=== PATIENT | female | born 1935 | race Caucasian/White ===

== ENCOUNTER 2019-02-27 17:45 | Inpatient (IN) ==
[2019-02-27 19:44] LABS: BASO# 0.01 X1000 (0.0-0.2); BASO% 0.1 % (0.0-0.8); EOS# 0.08 X1000 (0.0-0.7); EOS% 0.9 % (0.0-10.0); HEMATOCRIT 32.9 % (37.0-47.0); HEMOGLOBIN 12.1 g/dL (12.0-16.0); IMM GRAN# 0.08 X1000 (0.0-0.04); IMM GRAN% 0.9 % (0.0-0.5); LYMPH# 2.15 X1000 (1.2-3.4); LYMPH% 23.5 % (20.5-51.1); MCHC 36.8 g/dL (33-37); MCV 81.6 FL (81-99); MONO# 1.23 X1000 (0.11-0.59); MONO% 13.5 % (1.7-9.3); MPV 9.2 FL (7.4-10.4); NEUT# 5.59 X1000 (1.4-6.5); NEUT% 61.1 % (42.2-75.2); PLT 304 X1000 (130-400); RBC 4.03 XMIL (4.2-5.4); RDW 10.7 % (11.5-14.5); WBC 9.14 X1000 (4.8-10.8)
[2019-02-27 19:54] LABS: BILIRUBIN URINE NEGATIVE (NEGATIVE); BLOOD URINE NEGATIVE (NEGATIVE); CLARITY CLEAR (CLEAR); COLOR YELLOW; KETONE URINE NEGATIVE (NEGATIVE); LEUKOCYTES URINE NEGATIVE (NEGATIVE); NITRITE URINE NEGATIVE (NEGATIVE); PROTEIN URINE NEGATIVE (NEGATIVE); URINE SOURCE CATH; UROBILINOGEN URINE NORMAL
[2019-02-27 19:55] LABS: URINE BACTERIA NEGATIVE /HFP; URINE CAST NONE SEEN /LPF; URINE CRYSTAL NONE SEEN /HPF; URINE EPITHELIAL CELLS <10 /HPF (<10); URINE RBC <10 /HPF (<10); URINE WBC <10 /HPF (<10); URINE YEAST NONE SEEN /HPF
[2019-02-27 20:05] LABS: ESTIMATED GFR > 60
[2019-02-27 20:17] LABS: AGAP 11; ALBUMIN 4.3 g/dL (3.5-5.0); ALKALINE PHOSPHATASE 70 U/L (32-104); BUN 8 mg/dL (8-22); CALCIUM 9.2 mg/dL (8.8-10.2); CHLORIDE 71 mmol/L (98-107); COSMO 213; CREATININE 0.4 mg/dL (0.5-0.9); GLUCOSE 109 mg/dL (70-104); GOT 18 U/L (10-30); GPT 7 U/L (10-36); POTASSIUM 4.2 mmol/L (3.5-5.1); TCO2 23 mmol/L (25-35); TOTAL PROTEIN 6.5 g/dL (6.3-8.3)
[2019-02-27 20:18] LABS: SODIUM 105 mmol/L (136-145)
--- NOTE | 2019-02-27 20:26 | Diag Imaging Result Doc PS360 ---
CHEST-1 VIEW - 02/27/2019 INDICATION: weakness, increased confusion. COMPARISON: 03/25/2015 FINDINGS: The lungs are normally expanded and clear. Heart size and mediastinal contours are normal. No pneumothorax or pleural effusion. IMPRESSION: Negative exam. Electronically signed by Celso Chaney 02/27/2019 8:25 PM
--- NOTE | 2019-02-27 20:31 | Diag Imaging Result Doc PS360 ---
CT HEAD W/O CONTRAST - 02/27/2019 INDICATION: increasing confusion. COMPARISON: None FINDINGS: There is diffuse advanced cerebral white matter hypodensity compatible with chronic microvascular ischemia. No intracranial mass or hemorrhage. The skull is intact. The sinuses, mastoids, and middle ears are clear. IMPRESSION: Advanced chronic microvascular ischemia. No acute process. This exam was performed using automated exposure control, adjustment of mA or kV according to patient size, and/or use of iterative reconstruction technique Electronically signed by Celso Chaney 02/27/2019 8:29 PM
[2019-02-27] MEDS ORDERED: NACL 3% 500 ML IV SCH ×3 (21:00→21:53)
--- NOTE | 2019-02-27 21:36 | PROVIDER DOCUMENTATION ---
This chart was entered by Domi Ventura Scribe, acting as scribe for Tianna Huerta DO. HPI-General Adult - General Chief Complaint: Edema Stated Complaint: FEET SWELLING / HEADACHE Time Seen by Provider: 02/27/19 19:03 Source: patient Allergies/Adverse Reactions: Patient Allergies Allergy/AdvReac Type Severity Reaction Status Date / Time ibuprofen [From Motrin] Allergy RASH Verified 03/23/15 17:26 morphine Allergy ANAPHYLAXIS Verified 03/23/15 17:26 Home Medications: Home Medication List Medication Instructions Recorded Confirmed Last Taken Type Digoxin [Lanoxin] 125 mcg PO DAILY 03/23/15 03/23/15 03/23/15 History Flecainide Acetate 50 mg PO BID 03/23/15 03/23/15 03/23/15 18:00 History Lisinopril 10 mg PO DAILY 03/23/15 03/23/15 03/23/15 History Multivitamin [Daily Multiple 1 each PO DAILY 03/23/15 03/23/15 03/23/15 09:00 Hi story Vitamin] PRAVAstatin [Pravachol] 40 mg PO DAILY 03/23/15 03/23/15 03/23/15 History Acetaminophen [Tylenol] 650 mg PO PRN PRN #0 tablet 03/28/15 Unknown Rx Digoxin [Lanoxin] 125 microgm PO DAILY #0 tablet 03/28/15 Unknown Rx Flecainide [Tambocor] 50 mg PO BID #0 tablet 03/28/15 Unknown Rx Lorazepam 1 mg PO TID PRN #90 tablet 03/28/15 Unknown Rx - History of Present Illness -Gen Adult Nature of Presenting Problems: pt is a 83 yr old female presenting with complaint of increased LE edema, chest pain, fatigue, urinary frequency, headache and dizziness. pt reports chest pain tonight. Her son states that she complained of that after sweeping and has done so previously. She has a headache that has been present x 2 yrs and the etiology is unclear. Location of Pain/Injury: reports: head, chest Pain Radiation: reports: no radiation Quality of Pain: reports: aching Severity: reports: mild Onset/Duration: reports: gradual Timing: reports: changing over time, getting worse Context/Activities at Onset: reports: light activity Modifying Factors: improves with: analgesics (no relief) Associated Symptoms: reports: chest pain, fatigue, genitourinary problems, headaches, loss of appetite, weakness. denies: back/neck pain, fever/chills, sinus congestion/drainage, shortness of breath Similar Symptoms Previously?: Yes Recently seen or treated by another doctor?: No Review of Systems - Adult - REVIEW OF SYSTEMS - ADULT Constitutional: reports: merry. denies: chills, fever Eyes: reports: no symptoms reported Ears, Nose, Mouth & Throat: denies: ear pain, sinus problem, throat pain Cardiovascular: reports: chest pain, edema. denies: palpitations, syncope Respiratory: denies: cough, shortness of breath, wheezing Gastrointestinal: denies: abdominal pain, nausea, vomiting Genitourinary: reports: frequency. denies: dysuria, flank pain Musculoskeletal: denies: back pain, neck pain Integumentary: reports: no symptoms reported Neurological: reports: dizziness/vertigo, headache/migraines. denies: syncope Psychiatric: reports: no symptoms reported Endocrine: reports: no symptoms reported Hematologic/Lymphatic: reports: no symptoms reported Allergic/Immunologic: reports: no symptoms reported All Other Systems: Reviewed and Negative Past History - Adult - PAST MEDICAL HISTORY-ADULT Review of Records: reports: Old Records Reviewed, Nursing Assessment Review, Medications Reviewed, Social history reviewed & non-contributory. Major Childhood Illnesses: reports: denies history Cardiovascular: reports: A-Fib, HTN, hyperlipidemia Respiratory: reports: denies history Gastrointestinal: reports: GERD Obstetrical/Gynecological: reports: denies history Genitourinary: reports: denies history Musculoskeletal: reports: denies history Neurological: reports: denies history Endocrine/Immune: reports: denies history Other Conditions: reports: denies history - PRIOR SURGERIES/PROCEDURES Surgical/Procedure History: reports: hysterectomy, orthopedic (extremity) (x3), back/neck - IMMUNIZATION STATUS Childhood Immunizations: See Nurse Assessment Flu Vaccine: See Nurse Assessment - FAMILY HISTORY Family History: reviewed, not pertinent - SOCIAL HISTORY Smoking: denies Substance Use: denies Living Situation: family Physical Exam-General - PHYSICAL EXAM-ADULT Initial Vital Signs Reviewed: Yes - CONSTITUTIONAL General Appearance: appears well, alert, no apparent distress - EYES Eyes: PERRL/EOMI, pink conjunctivae - HEAD, EARS, NOSE, MOUTH & THROAT HENMT: normocephalic/atraumatic, moist mucous membranes, normal ENT inspection - NECK Neck: non-tender, full range of motion, supple, normal inspection - RESPIRATORY Respiratory: chest non-tender, lungs clear, normal breath sounds, no pleuratic chest pain, no respiratory distress, no accessory muscle use - CARDIOVASCULAR Cardiovascular: normal peripheral pulses, regular rate, rhythm, no JVD, other (2+ pitting edema LLE, trace edema RLE) - GASTROINTESTINAL (ABDOMEN) Abdominal Exam: normal bowel sounds, non tender, soft - LYMPHATIC Lymphatic: no adenopathy - MUSCULOSKELETAL Back Exam: normal inspection Extremity: normal range of motion, non-tender, pedal edema - SKIN Integumentary: normal color, normal turgor, warm/dry - NEUROLOGIC Neurologic: other (speech clear, fur blender equal and strong. oriented to person and place.). negative: facial droop, focal weakness, motor weakness, sensory deficit - PSYCHIATRIC Psych/Mental Status: normal mood/affect Progress - PLAN OF CARE/RESULTS Progress/Plan/Lab Results: Vital Signs - 8 hr 02/27/19 18:06 02/27/19 19:07 Temperature 97.9 F Pulse Rate 67 67 Respiratory Rate 18 23 Blood Pressure 145/76 144/74 O2 Sat by Pulse Oximetry 99 98 Clinically stable under my care. Considerations include but not limited to: CVA, TIA, UTI, dehydration, hypokalemia, sepsis. Her head CT is WNL. Her sodium returned at 105. I discussed her care with Dr Peters who recommended admission at [facility]. I spoke with Dr Tadeo there who accepted her. He recommended initiating 3% saline. This was initiated prior to xfer. She remained free of seizure activity here. Result Diagrams: 02/27/19 19:23 02/27/19 19:23 - XRAY 1 XRAY Study: Chest Impression: Normal ( Signed CHEST-1 VIEW - 02/27/2019 INDICATION: weakness, increased confusion. COMPARISON: 03/25/2015 FINDINGS: The lungs are normally expanded and clear. Heart size and mediastinal contours are normal. No pneumothorax or pleural effusion. IMPRESSION: Negative exam. Electronically signed by Celso Chaney 02/27/2019 8:25 PM 02/27/192024 Interpreting Physician: Celso Chaney MD Dictated Date/Time: 02/27/192024) - CT/MRI 1 CT Study: Head Impression: Abnormal (Signed CT HEAD W/O CONTRAST - 02/27/2019 INDICATION: increasing confusion. COMPARISON: None FINDINGS: There is diffuse advanced cerebral white matter hypodensity compatible with chronic mi crovascular ischemia. No intracranial mass or hemorrhage. The skull is intact. The sinuses, mastoids, and middle ears are clear. IMPRESSION: Advanced chronic microvascular ischemia. No acute process. This exam was performed using automated exposure control, adjustment of mA or kV according to patient size, and/or use of iterative reconstruction technique Electronically signed by Celso Chaney 02/27/2019 8:29 PM 02/27/192028 Interpreting Physician: Celso Chaney MD Dictated Date/Time: 02/27/192024 cc: Tianna Huerta DO; Aldair Gonsalez), See EMR Report Departure - Departure Date of Disposition Decision: 02/27/19 Time of Disposition Decision: 21:00 DIAGNOSIS: Hyponatremia Disposition: ADMITTED INPATIENT 09 Certified Medical Emergency: Emergent Condition: Serious Referrals and Follow-Ups: Aldair Gonsalez [Primary Care Provider] - - Critical Care Note This patient required my direct & personal management of CC.: Yes Total Time (mins): 33 Critical Care Statement: This patient required my direct personal management to treat or rule out processes, the absence of which, could potentiallly result in sudden, clinically significant life or limb threatening deterioration. Attestation - Physician/ ELI Attestation The physician spent face to face time with patient:: Yes Advanced Practice Provider documentation review:: Supervising physician onsite and consulted in the evaluation and care of this patient. The physician did have a face to face encounter with the patient. This chart was documented by the indicated scribe, (Domi Ventura, Kaleigh) and accurately reflects the services I performed and decisions made by me, Tianna Huerta DO, as attested by the provider's signature.
[2019-02-27 22:26] LABS: MAGNESIUM 1.5 mg/dL (1.5-2.7)
[2019-02-27] MEDS ORDERED: TYLENOL PO PRN (22:31)
[2019-02-27] MEDS ORDERED: ZOFRAN IV PRN (22:31)
--- NOTE | 2019-02-27 23:30 | EKG Report ---
Test Performed on : 02/27/2019 10:30:02 PM Test Reason : Hyponatremia Blood Pressure : / mmHG Vent. Rate : 068 BPM Atrial Rate : 068 BPM P-R Int : 174 ms QRS Dur : 158 ms QT Int : 476 ms P-R-T Axes : 036 -41 095 degrees QTc Int : 506 ms Sinus rhythm. with occasional premature ventricular complexes. Left axis deviation Left bundle branch block Abnormal ECG When compared with ECG of 02-JUL-2007 07:14, premature ventricular complexes. are now present Left bundle branch block is now present Confirmed by Dejan Johnson MD ([id number]) on 03/01/2019 9:00:56 AM
--- NOTE | 2019-02-27 23:35 | EKG Report ---
Test Performed on : 02/27/2019 11:32:37 PM Test Reason : EVAL Blood Pressure : / mmHG Vent. Rate : 067 BPM Atrial Rate : 067 BPM P-R Int : 208 ms QRS Dur : 166 ms QT Int : 478 ms P-R-T Axes : 058 -39 091 degrees QTc Int : 505 ms Normal sinus rhythm. Left axis deviation Left bundle branch block Abnormal ECG When compared with ECG of 27-FEB-2019 23:31, (Unconfirmed) No significant change was found Confirmed by Alex SANTIZO, Dejan Issa ([id number]) on 03/01/2019 9:00:58 AM
[2019-02-28] MEDS ORDERED: LASIX IV ONE (02:25)
[2019-02-28] MEDS ORDERED: NACL 3% 500 ML IV SCH ×6 (02:30→13:30)
[2019-02-28 05:08] LABS: BASO# 0.01 X1000 (0.0-0.2); BASO% 0.1 % (0.0-0.8); EOS# 0.07 X1000 (0.0-0.7); EOS% 0.7 % (0.0-10.0); HEMATOCRIT 36.1 % (37.0-47.0); HEMOGLOBIN 13.3 g/dL (12.0-16.0); IMM GRAN# 0.07 X1000 (0.0-0.04); IMM GRAN% 0.7 % (0.0-0.5); LYMPH# 1.86 X1000 (1.2-3.4); LYMPH% 18.4 % (20.5-51.1); MCH 29.9 PG (27-31); MCHC 36.8 g/dL (33-37); MCV 81.1 FL (81-99); MONO# 1.25 X1000 (0.11-0.59); MONO% 12.4 % (1.7-9.3); MPV 9.8 FL (7.4-10.4); NEUT# 6.86 X1000 (1.4-6.5); NEUT% 67.7 % (42.2-75.2); PLT 288 X1000 (130-400); RBC 4.45 XMIL (4.2-5.4); RDW 10.7 % (11.5-14.5); WBC 10.12 X1000 (4.8-10.8)
--- NOTE | 2019-02-28 05:19 | HISTORY AND PHYSICAL ---
ADDENDUM This is an addendum to the history and physical dictated by nurse practitioner. I agree with most components of history, physical, assessment and plan. In brief, Mrs. Powell is an 83-year-old lady with past medical history of atrial fibrillation, chronic GERD, coronary artery disease, essential hypertension, hyperlipidemia, who went to the [place] [facility] with chief complaints of increasing lower extremity edema, headache, dizziness, and increased urinary frequency. In the [place] [facility] room, she was found to have significant hyponatremia with sodium of 105, so she was transferred to [facility] ICU for further management as well as Nephrology evaluation. At the time of my evaluation, patient is alert, but she appears confused. She follows simple commands, but often times mumbles that she is on high blood pressure medication. VITAL SIGNS: Suggest temperature of 97.9 degrees, pulse 72, respiratory 23, blood pressure 162/85. She is saturating 99% on room air. PHYSICAL EXAMINATION: GENERAL: Not in acute distress. HEENT: Oral cavity is moist with good pool of saliva. LUNGS: Air entry bilaterally equal. No wheeze, rhonchi, crackles. CARDIOVASCULAR: S1, S2 normal. Regular. No murmur, gallop, rub. ABDOMEN: Soft, nontender. EXTREMITIES: She has bilateral lower extremity edema extending up to knee levels. NEUROLOGIC: She is alert, oriented to herself. She answers intermittent questions appropriately. She is moving all extremities spontaneously LABS: Suggestive of sodium of 105, which improved to 106 after 100 mL of hypertonic saline. Microbiology: No data. IMAGIN. Head CT on admission did not have any acute pathology. There was no mention of brain herniation. 2. Chest x-ray had negative exam. 3. EKG had left bundle branch block. ASSESSMENT AND PLAN: 1. Hyponatremia. It could be hypervolemic hyponatremia, considering bilateral lower extremity edema and mild volume overload. However, there was no documentation of congestive heart failure or echocardiogram in the system. I will get the echocardiogram. I will treat this as chronic hyponatremia with goal of increasing serum sodium of about 6 mEq in 24 hours. Her sodium increased to about 1 mEq after 100 mL of hypertonic saline. I will start her on hypertonic saline infusion as well as give her intravenous Lasix and follow up with echocardiogram. We will also consult Nephrology in the morning time. She does not have any seizures or she is not obtunded, though she appears mildly confused. 2. Atrial fibrillation. We will resume her home medications once reconciled. 3. Disposition: I will continue to monitor patient inside ICU. TIME SPENT: More than 30 minutes of critical care time was spent taking care of this patient. Plan of care will be discussed with nursing team. cc: Lexx Tadeo MD MTDPhillip
[2019-02-28 05:25] LABS: AGAP 14; ALB/GLOB RATIO 1.4; ALBUMIN 4.1 g/dL (3.5-5.0); ALKALINE PHOSPHATASE 69 U/L (32-104); BUN 6 mg/dL (8-22); CALCIUM 8.8 mg/dL (8.8-10.2); CHLORIDE 69 mmol/L (98-107); COSMO 215; CREATININE 0.4 mg/dL (0.5-0.9); ESTIMATED GFR > 60; GLUCOSE 112 mg/dL (70-104); GOT 21 U/L (10-30); GPT 8 U/L (10-36); POTASSIUM 3.3 mmol/L (3.5-5.1); TCO2 23 mmol/L (25-35); TOTAL BILIRUBIN 0.85 mg/dL (0.20-1.00)
[2019-02-28 05:27] LABS: SODIUM 106 mmol/L (136-145)
[2019-02-28] MEDS: ULTRAM PO PRN (06:07)
[2019-02-28] MEDS: PRILOSEC PO SCH (06:08)
[2019-02-28] MEDS ORDERED: KLOR-CON PO ONE (06:51)
[2019-02-28] MEDS: THERA M PLUS PO SCH (07:59)
[2019-02-28] MEDS: TOPROL XL PO SCH (07:59)
[2019-02-28] MEDS: BETAPACE PO SCH ×2 (07:59→20:49)
[2019-02-28 09:36] LABS: AGAP 14; BUN 6 mg/dL (8-22); CALCIUM 8.8 mg/dL (8.8-10.2); CHLORIDE 67 mmol/L (98-107); COSMO 213; CREATININE 0.4 mg/dL (0.5-0.9); ESTIMATED GFR > 60; GLUCOSE 112 mg/dL (70-104); POTASSIUM 3.1 mmol/L (3.5-5.1); TCO2 24 mmol/L (25-35)
[2019-02-28 09:39] LABS: SODIUM 107 mmol/L (136-145)
--- NOTE | 2019-02-28 10:31 | PROGRESS NOTE ---
DATE: 02/28/2019 SUBJECTIVE: This morning, I saw Ms. Powell go in the ICU. She was no family member at the bedside. She could not really tell me why she came to the hospital, and with whom she came to the hospital with. She is still fairly confused. She is oriented to person and to place, but disoriented to time. She will, however, follow some basic commands. OBJECTIVE: Vital signs: Blood pressure is 143/75, pulse of 69, respiration is 22, temperature 98.4 degrees. General exam: Ms. Powell is an 83-year-old female; she is in bed. She did not seem to be in any distress. HEENT: Mucosa is pink and moist. Anicteric. Acyanotic. Neck: Supple. I did not see any JVD. Chest: Good air entry bilateral. There were no crepitations, no rhonchi. Cardiovascular: Regular rate and rhythm. Occasional extrasystolic beats, but no murmurs, no rubs, no gallops. GI/Abdomen: Soft, nontender. Bowel sounds present. Extremities: There may be a trace of edema at the ankle, but I did not see any remarkable lower extremity edema. DIRECTOR OF GIFT PLANNING: Patient was awake, alert, oriented to person and to place, but disoriented to time. The patient was also unaware what brought her to the hospital, but she will follow basic commands. She is very, very easily forgetful. LABORATORY DATA: WBC is 10.12, hemoglobin is. 13.2, platelet count of 288. Sodium is 106, potassium is 3.2, chloride is 63, bicarbonate is 23. Renal function is fine. The patient's random urine sodium was 411. Osmolarity was 315. Serum osmolarity was 205. TSH is 1.43. ASSESSMENT: 1. Altered mental status on presentation with some confusion, which we think is associated with hyponatremia. We will continue to address the underlying problem. 2. Chronic hyponatremia. Ms. Powell seems to run low sodium since 2014. It has however been remarkably worse. This is chronic. She does not seems overly volume overloaded this morning, so she might have had some improvement overnight. She is getting 3% at this time. We will follow up the sodium determination as ordered. 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 I have not seen any medication on her list that will cause this. Her thyroid stimulating hormone is normal. We will get a cortisol level. If the cortisol level is normal, we will have to scan her chest to rule out any lung pathology that could potentially cause her the syndrome of inappropriate antidiuretic hormone. Nephrology has also been consulted to help with the management. 3. History of atrial fibrillation, currently rate controlled. Patient is on Sotalol and metoprolol. 4. Dyslipidemia. 5. Gastroesophageal reflux disease. 6. History of coronary artery disease currently asymptomatic. PLAN: So, in general, Ms. oPwell has chronic hyponatremia, which has obviously gotten worse. 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 Her medication list does not suggest anything that has potential to cause this. We are going to check serum cortisol. I think she would eventually need fluid restriction and may be Samsca after the 3%. We will however wait for Nephrology to see her and then give her some more recommendations. cc: Francis Tilley MD
--- NOTE | 2019-02-28 11:59 | HISTORY AND PHYSICAL ---
PRIMARY CARE PROVIDER: Dr. Aldair Gonsalez. DATE AND TIME: 02/28/2019 at 0025. CHIEF COMPLAINT: Edema. HISTORY OF PRESENT ILLNESS: Ms. Powell is an 83-year-old female, who presented to the ER at [facility] this evening secondary to some increased lower extremity swelling. The patient did have reported multiple symptoms which included headache, which she noted was a frontal headache. The patient has been having sinus congestion as well. She also reported dizziness, increased fatigue. She has been reporting chest pain as well. When the patient was asked to point to her chest pain, she did point to her epigastric area. She reports the pain was nonradiating, though really could not describe how the pain felt. She did tell me that she had a history of hiatal hernia as well, though she is reporting increased indigestion/heartburn and states she does take a lot of [id number] Rolaids. She denies any nausea, vomiting, or diarrhea. She denies any hematemesis, hematochezia or melena. She denies any fever, body aches, or chills. She reports some possible increase though she denies any dysuria. She also has been reporting increased bilateral lower extremity edema as well. The patient denies any new or recent changes to any of her medications. Upon evaluation in the ER at [facility], lab results did reveal that the patient did have severe hyponatremia with an initial sodium of 105. ProBNP was elevated at 1596. The patient's EKG did show normal sinus rhythm with a left bundle-branch block at a rate of 67 with a QTc of 505. The patient's left bundle-branch block is not of new onset, it was present on previous EKG. CK and troponin were negative. Chest x-ray as well as a CT head without contrast showed no acute intracranial abnormalities. Given the patient's low sodium, we will have her placed inpatient for admission. She will be transferred to [facility] for inpatient ICU admission. Though I am not certain what the patient's baseline mentation is, her son was not present at bedside, he did mention to the nurse that he does believe the patient has dementia and her memory has been slipping more than normal recently, though the patient, at this time, could tell me her name, her date of , and that she was in [facility] that was located in [place]. REVIEW OF SYSTEMS: A 14 point review of systems was conducted with the patient and all were negative except for pertinent positives mentioned above in the HPI. PAST MEDICAL HISTORY: 1. Atrial fibrillation. 2. History of coronary artery disease. 3. Anxiety disorder. 4. Dyslipidemia. 5. Hypertension. PAST SURGICAL HISTORY: 1. Bilateral hip replacements. 2. Back surgery x2. 3. Hysterectomy. 4. Carpal tunnel release bilaterally. FAMILY HISTORY: Hypertension. SOCIAL HISTORY: The patient denies any tobacco, alcohol or illicit drug use. She currently does live by herself though her son lives next door and does check on her frequently. ALLERGIES: The patient has allergies to ibuprofen and morphine. DIAGNOSTIC DATA/LABORATORY RESULTS: White blood cell count is 9140, hemoglobin 12.1, hematocrit 32.9, platelet count is 304,000. Sodium 105, potassium 4.2, chloride 71, serum bicarb is 23, BUN 8, creatinine 0.4, with a GFR greater than 60, glucose 109. Calcium 9.2. Liver function tests within normal limits. CK 132. Troponin is less than 0.01. ProBNP is 1596. EKG showed normal sinus rhythm, with a left bundle-branch block and rate of 67, with a QTc of 505. Portable chest x-ray showed no acute abnormality, this is per Radiology. CT of the head without contrast showed advanced chronic microvascular ischemia, though no acute disease. PHYSICAL EXAMINATION: VITAL SIGNS: Temperature 98 degrees, heart rate 66, respirations 20, blood pressure is 149/72, oxygen saturation is 99% on room air. GENERAL: Ms. Powell is an 83-year-old female. She was resting in the ICU bed. She was in no acute distress. She was alert and oriented to person, place, and time though occasionally confused with the situation. HEENT: Head is atraumatic, normocephalic. Pupil on her left was 3 mm, round and reactive to light. The pupil on the right was misshapen, could not note a pupillary response. The patient reports that she has had previous cataract surgery on this eye. Oral mucosa is moist. Oropharynx is clear. NECK: Supple. Trachea midline. No JVD noted. CARDIOVASCULAR: Patient has S1-S2 present. No murmurs, gallops, or rubs appreciated, with a regular rate and rhythm. PULMONARY: The patient has symmetrical chest expansion bilaterally. Lung sounds are clear to auscultation in bilateral [place]. ABDOMEN: Soft, nontender, nondistended. Bowel sounds were present in all 4 quadrants, were normoactive. EXTREMITIES: No cyanosis noted. The patient does have some trace edema noted at approximately 1+ pitting edema just around her ankles bilaterally though her left ankle does appear to be worse than her right. Pulse, motor and sensory intact in all extremities. Radial and pedal pulses were 2+ bilaterally. INTEGUMENTARY: The patient's skin is pink, warm, and dry. NEUROLOGIC: The patient is alert and oriented to person, place, and time though occasionally is confused about situation. She does answer most questions appropriately, though is not the best historian when it comes to questions and information related to history of present illness and past medical history, though she does follow commands. She is able to move all extremities though does have some generalized weakness noted. ASSESSMENT AND PLAN: 1. Hypotonic hyponatremia. This is possibly related to hypervolemia. The patient does not have any known history of congestive heart failure, though she does have worsening bilateral lower extremity edema as well as elevated proBNP. We are going to obtain an echocardiogram. We will provide her with 1 dose of Lasix 40 mg IV and do strict intake and output, and monitor this closely. The patient will be placed on q.4 hour sodium checks with q.2 hour neurological checks. We have placed the patient with sodium chloride 3% at 20 mL/h. We are going to set a goal of increasing her serum sodium 6 mEq in 24 hours. The patient has not had any seizures. She is not obtunded. She only is confused to situation. Sometimes she does repeat questions or you have to ask her a question more than once, though she is sitting up in bed, is awake and alert and is oriented to person, place, and time. We will continue to follow closely. 2. History of atrial fibrillation. At this time, the patient is actually in sinus rhythm, her heart rate is controlled. We will continue her regularly prescribed medications for this of sotalol and metoprolol. 3. History of hypertension. We will continue with medicines as mentioned above. 4. Anxiety disorder. We have continued the patient's Ativan p.r.n. 5. Hyperlipidemia. We will continue the patient's Pravachol. 6. Deep venous thrombosis prophylaxis. Provided with sequential compression devices. The patient has been placed in the ICU for close monitoring. She will be on continuous cardiac telemetry. We will do vital signs per ICU protocol. We will perform strict intake and output, every 2 hour neuro checks. We will repeat a series of sodium draws and have ordered for the physician to be notified of every serum sodium result. Further orders and recommendations pending hospital course, diagnostic studies, and physician evaluation. Dictated by BERNARD Boland for Lexx Tadeo MD cc: Lexx Tadeo MD I agree with most components of history, physical, assessment and plan. A separate addendum has been dictated. BJ
[2019-02-28] MEDS: ATIVAN PO PRN (13:56)
--- NOTE | 2019-02-28 14:40 | ECHO REPORT ---
ORDER DATE: 02/28/2019 INTERPRETING PHYSICIAN: Dr. Pérez REQUESTING PHYSICIAN: CLINICAL INDICATIONS: This is an 83-year-old female with CHF, heart failure evaluate. M-MODE MEASUREMENTS: Right ventricle: cm. Left ventricle end diastole: 4.1 cm. Left ventricle end systole: 2.6 cm. Posterior wall: 1.8 cm. Interventricular septum: 1.0 cm. Left atrium: 3.5 cm. Aortic root: 2.9 cm. SUMMARY OF 2-DIMENSIONAL IMAGIN. Left ventricular function is normal. Ejection fraction is estimated at 62%. 2. There is no wall motion abnormality noted. Borderline concentric LVH. 3. Aortic valve looks normal. Color flow mapping indicates mild degree of aortic regurgitation. 4. Mitral valve looks normal. Color flow mapping indicates mild degree of regurgitation. 5. Pulse wave Doppler of mitral inflow is normal. 6. Tissue Doppler of septal and lateral mitral annulus averages 6 cm. 7. Pulmonary venous flow is normal. 8. There is no diastolic dysfunction. 9. Tricuspid valve shows mild degree of regurgitation. 10.Inferior vena cava is not dilated. 11.Pulmonary systolic pressure is estimated at 29 mmHg. 12.Left atrium is not dilated. 13.Right atrium is normal. 14.The pulmonic valve looks normal. Color flow mapping is unremarkable. 15.There is no pericardial effusion, mass or thrombus. CONCLUSIONS: In summary, this summary shows: 1. Overall normal left ventricular systolic function. Ejection fraction is 62% with borderline concentric LVH and atypical contractility of the interventricular septum that probably relates to the presence of bundle branch block. 2. A mild degree of aortic regurgitation. 3. Mild to moderate degree of mitral regurgitation. 4. No diastolic dysfunction. 5. Pulmonary pressure estimated at 29 mmHg. Clinical correlation is recommended. cc: MD Lexx Mendoza MD
--- NOTE | 2019-02-28 15:11 | NEPHROLOGY CONSULTATION ---
DATE: 02/28/2019 REASON FOR CONSULTATION: Hyponatremia. HISTORY OF PRESENT ILLNESS: Ms Powell is an 83-year-old, white female who is alone in her room. She is awake and alert but really can't tell me why she is at the hospital today. She states that she lives in [place], next door to her son who is her primary caregiver. She denies recent symptoms including nausea, vomiting, weakness, falling, etc. She does admit to a mild apical headache. Her initial evaluation in the emergency room found profound hyponatremia with sodium 105. She has been treated with volume expansion but her sodium has really not improved. We were asked to assist with management. PAST MEDICAL HISTORY: Includes hypertension, hyperlipidemia, cardiac arrhythmia. HOME MEDICATIONS: Include pravastatin, lisinopril, digoxin, flecainide, acetaminophen, lorazepam, omeprazole, multivitamin, amlodipine, meloxicam, metoprolol, tramadol, sotalol, turmeric, cholecalciferol. ALLERGIES: Ibuprofen, and morphine. SOCIAL HISTORY: As above. FAMILY HISTORY/REVIEW OF SYSTEMS: Otherwise noncontributory. PHYSICAL EXAMINATION: Vital Signs: Blood pressure 153/71, heart rate 63, respirations 23. General: Chronically ill elderly woman, no acute distress. Skin: Warm and dry. Conjunctivae are pink. Pupils are equal. Neck: Neck veins are not appreciated. Trachea is midline. Heart: PMI is nondisplaced. Regular rate and rhythm. No murmurs, rubs, or gallops. Lungs: Have equal excursion, equal breath sounds. No crackles wheezes accessory muscle use or retractions. Abdomen: Soft, nontender. Bowel sounds present. No organomegaly, masses, bruits. Extremities: No edema, clubbing, cyanosis. Intact distal pulses. Neurologic: Grossly nonfocal except for her memory loss. IMPRESSION: Hyponatremia. Her sodium is 107 at 8:45 following 100 mL of 3% saline. I will give another 100 mL and will then follow free water restriction only with a goal of no more than 6 to 8 mEq/L correction over the first 24 hours. cc: Junior Herrmann MD
[2019-02-28] MEDS ORDERED: NACL 3% 500 ML IV ONE (15:56)
[2019-02-28] MEDS: HALDOL IV PRN ×2 (17:09→22:47)
[2019-02-28] MEDS: PRAVACHOL PO SCH (20:48)
[2019-03-01 05:31] LABS: HEMATOCRIT 33.3 % (37.0-47.0); HEMOGLOBIN 12.2 g/dL (12.0-16.0); MCHC 36.6 g/dL (33-37); MCV 81.8 FL (81-99); MPV 9.5 FL (7.4-10.4); RBC 4.07 XMIL (4.2-5.4); RDW 10.6 % (11.5-14.5); WBC 8.89 X1000 (4.8-10.8)
[2019-03-01 05:54] LABS: AGAP 11; ALBUMIN 3.7 g/dL (3.5-5.0); BUN 5 mg/dL (8-22); CALCIUM 8.9 mg/dL (8.8-10.2); CHLORIDE 76 mmol/L (98-107); COSMO 226; CREATININE 0.4 mg/dL (0.5-0.9); ESTIMATED GFR > 60; GLUCOSE 97 mg/dL (70-104); PHOSPHORUS 2.4 mg/dL (2.7-4.5); TCO2 26 mmol/L (25-35)
[2019-03-01 05:59] LABS: SODIUM 113 mmol/L (136-145)
[2019-03-01] MEDS: PRILOSEC PO SCH (06:08)
[2019-03-01] MEDS: BETAPACE PO SCH ×2 (08:12→20:32)
[2019-03-01] MEDS: THERA M PLUS PO SCH (08:13)
[2019-03-01] MEDS: TOPROL XL PO SCH (08:13)
[2019-03-01] MEDS ORDERED: POTASSIUM PHOSPHATE 40 MEQ in NS 250 ML IV ONE (08:24)
[2019-03-01] MEDS: HALDOL IV PRN ×3 (09:39→20:32)
--- NOTE | 2019-03-01 10:10 | PROGRESS NOTE ---
DATE: 03/01/2019 SUBJECTIVE: This morning, Ms. Powell refers to be doing well. Seems more engaging than yesterday. OBJECTIVE: Vital Signs: Blood pressure is 153/70, pulse of 65, respirations are 19, temperature is 98.5 degrees. General Examination: Ms. Powell is an 83-year-old, elderly, female. She is in bed. No distress. HEENT: Mucosa is pink and moist. Anicteric. Acyanotic. Neck: Supple. Chest: Clear to auscultation. No crepitations. No rhonchi. Cardiovascular: Regular rate and rhythm. No murmurs, no rubs, no gallops. GI: Abdomen is soft, nontender. Bowel sounds present. Extremities: No pedal edema. 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 The patient seemed more engaging in conversation today than yesterday. Laboratory Data: CBC is unremarkable. Chemistry: Sodium is up to 113 today. That is about 8 millimole increase in 24 hours, which I think it is adequate. We will continue following up the sodium level. If it continues to climb, I think it would be reasonable to put her on D5. Potassium is 3.0. ASSESSMENT: 1. Altered mental status on presentation associated with confusion which we think it is related to metabolic encephalopathy. 2. 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 The sodium has improved to 113. There is some 8 millimole increase in 24 hours, which I think is sufficient and adequate. We are going to continue to monitor this to make sure it does not get overly corrected. We will also follow up with nephrology recommendations. 3. History of atrial fibrillation, currently rate controlled. Patient is on sotalol and metoprolol. 4. Hypertension, controlled. 5. Dyslipidemia. 6. History of coronary artery disease, currently asymptomatic. PLAN: In general, I think Ms. Powell, this morning, looks less confused. She is still euvolemic. Sodium is getting better. We are going to continue to monitor her in the ICU and continue to gradually correct her sodium. cc: Francis Tilley MD
[2019-03-01 13:01] LABS: AGAP 13; ALBUMIN 3.9 g/dL (3.5-5.0); BUN 8 mg/dL (8-22); CALCIUM 8.5 mg/dL (8.8-10.2); CHLORIDE 76 mmol/L (98-107); COSMO 225; CREATININE 0.4 mg/dL (0.5-0.9); ESTIMATED GFR > 60; GLUCOSE 121 mg/dL (70-104); PHOSPHORUS 3.9 mg/dL (2.7-4.5); TCO2 22 mmol/L (25-35)
[2019-03-01 13:08] LABS: SODIUM 111 mmol/L (136-145)
[2019-03-01] MEDS: PRAVACHOL PO SCH (20:32)
[2019-03-02] MEDS: HALDOL IV PRN (01:32)
[2019-03-02] MEDS: PRILOSEC PO SCH (06:25)
[2019-03-02 06:32] LABS: BASO# 0.01 X1000 (0.0-0.2); BASO% 0.1 % (0.0-0.8); EOS# 0.07 X1000 (0.0-0.7); EOS% 0.8 % (0.0-10.0); HEMATOCRIT 35.4 % (37.0-47.0); HEMOGLOBIN 13.2 g/dL (12.0-16.0); IMM GRAN# 0.07 X1000 (0.0-0.04); IMM GRAN% 0.8 % (0.0-0.5); LYMPH# 1.68 X1000 (1.2-3.4); LYMPH% 18.4 % (20.5-51.1); MCH 30.3 PG (27-31); MCHC 37.3 g/dL (33-37); MCV 81.2 FL (81-99); MONO# 1.18 X1000 (0.11-0.59); MONO% 12.9 % (1.7-9.3); NEUT# 6.12 X1000 (1.4-6.5); PLT 261 X1000 (130-400); RBC 4.36 XMIL (4.2-5.4); RDW 10.7 % (11.5-14.5); WBC 9.13 X1000 (4.8-10.8)
[2019-03-02 07:00] LABS: AGAP 14; ALBUMIN 3.7 g/dL (3.5-5.0); BUN 7 mg/dL (8-22); CALCIUM 8.9 mg/dL (8.8-10.2); CHLORIDE 75 mmol/L (98-107); COSMO 224; CREATININE 0.3 mg/dL (0.5-0.9); ESTIMATED GFR > 60; GLUCOSE 101 mg/dL (70-104); PHOSPHORUS 2.6 mg/dL (2.7-4.5); POTASSIUM 3.2 mmol/L (3.5-5.1); TCO2 22 mmol/L (25-35)
[2019-03-02 07:01] LABS: SODIUM 111 mmol/L (136-145)
[2019-03-02] MEDS ORDERED: SAMSCA PO ONE (08:00)
[2019-03-02] MEDS: THERA M PLUS PO SCH (09:08)
[2019-03-02] MEDS: BETAPACE PO SCH ×2 (09:08→20:15)
[2019-03-02] MEDS: TOPROL XL PO SCH (09:09)
--- NOTE | 2019-03-02 15:13 | PROGRESS NOTE ---
DATE: 03/02/2019 SUBJECTIVE: This morning, Ms. Powlel refers to be doing fairly okay. Per the nursing staff, she is not as confused as before. OBJECTIVE: Vital Signs: Blood pressure is 121/54, pulse of 63, respirations 15, temperature 98.8 degrees. General: Ms. Powell is a 83-year-old female. She is in bed. No distress. HEENT: Mucosa is pink and moist. Anicteric. Acyanotic. Neck: Supple. Chest: Good air entry bilaterally. There were no crepitations, no rhonchi. Cardiovascular: Regular rate and rhythm. No murmurs, no rubs, no gallops. GI: Abdomen is soft, nontender. Bowel sounds present. Extremities: No pedal edema. 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 However, Mrs. Powell was engaging in more rational conversation. I's and O's showed the patient's urine output was 3125. She is currently negative balance of 4745. ASSESSMENT: 1. Altered mental status on presentation, associated with confusion, presumably due to sodium- induced metabolic encephalopathy. 2. 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 The patient's sodium is up to 111. We are going to continue to follow. She has been fluid restricted, and she has been given a dose of Samsca this morning. 3. History of atrial fibrillation, currently rate and rhythm controlled. The patient is on sotalol and metoprolol. 4. Hypertension, controlled. 5. Dyslipidemia. 6. History of coronary artery disease, currently asymptomatic. 7. Disposition will depend on the rest of the hospital course. Ms. Powell is a potential discharge to a rehab if she gets any physically weaker than she is. In general, I think Ms. Powell is doing fairly okay. I think she does have some level of cognitive decline from maybe dementia, so I think her mentation is probably back to her baseline. Her sodium is slightly improved. We are going to continue to monitor this throughout the course of the day. She has been given Samsca, and she seems to be making adequate urine. She has been fluid restricted. Will follow up with further recommendations from Nephrology, and go from there. cc: Francis Tilley MD
[2019-03-02] MEDS: PRAVACHOL PO SCH (20:15)
--- NOTE | 2019-03-02 21:13 | NEPHROLOGY PROGRESS NOTE ---
DATE: 03/02/2019 SUBJECTIVE: She dozes off and really does not interact with me. OBJECTIVE: Vital Signs: Blood pressure 121/54, heart rate 63, respirations 15, afebrile. Intake 780 mL. Output 2.6 L. General: No acute distress. Skin is pale and dry with bruising. Conjunctivae are pale. Oropharynx is dry. Neck: Neck veins are not distended. Heart: Regular. Lungs: Equal. No crackles. Abdomen: Soft, nontender. Bowel sounds present. Extremities: No edema, clubbing or cyanosis. IMPRESSION: Hyponatremia. Sodium 111 as of this morning. Samsca was ordered and labs are being monitored. There is a pending sodium currently. Continue current care. cc: Junior Herrmann MD
[2019-03-03] MEDS: PRILOSEC PO SCH (06:11)
[2019-03-03 06:31] LABS: AGAP 13; BUN 13 mg/dL (8-22); CALCIUM 9.4 mg/dL (8.8-10.2); CHLORIDE 80 mmol/L (98-107); COSMO 243; CREATININE 0.6 mg/dL (0.5-0.9); ESTIMATED GFR > 60; GLUCOSE 105 mg/dL (70-104); POTASSIUM 3.4 mmol/L (3.5-5.1); TCO2 27 mmol/L (25-35)
[2019-03-03 06:33] LABS: SODIUM 120 mmol/L (136-145)
[2019-03-03] MEDS ORDERED: KLOR-CON PO ONE (07:12)
[2019-03-03] MEDS: THERA M PLUS PO SCH (08:38)
[2019-03-03] MEDS: TOPROL XL PO SCH (08:38)
[2019-03-03] MEDS: BETAPACE PO SCH ×2 (08:38→20:17)
--- NOTE | 2019-03-03 09:19 | PROGRESS NOTE ---
DATE: 03/03/2019 SUBJECTIVE: This patient is doing better. She seems to be less confused. She is oriented x2. She is not oriented to time. She is following commands. Case discussed with the Nephrology Department. We will continue with fluid restriction. OBJECTIVE: Vital Signs: Temperature 98.2 degrees, pulse 56 respiratory rate 15, blood pressure 125/64, and oxygen saturation 99 percent on room air. HEENT: Head normocephalic. No trauma. PERRLA. Neck: Supple. No JVD. No masses. Central trachea. Chest: Clear to auscultation. No wheezing. No rales. Abdomen: Soft, nontender, and nondistended. No hepatosplenomegaly. Extremities: No edema. No clubbing. No cyanosis. Neurological: The patient is awake. She is alert. She is oriented to person and place. She is not oriented to time. She is following commands. She is having good urine output. Sodium level is improving, and she is tolerating p.o. LABORATORY: Sodium 120, potassium 3.4, chloride 80, bicarbonate 27, BUN 13, creatinine 0.6 glucose 105, and calcium 9.4. ASSESSMENT AND PLAN: 1. Altered mental status on presentation, likely due to hyponatremia. Probably, this patient also has a history of dementia. She seems to be better. We will continue with the same management, and fluid restriction for now. 2. 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 Sodium level upon admission was 105, and now up to 120. Case discussed with Nephrology Department. We will continue with fluid restriction like I said. 3. History of atrial fibrillation, rate controlled. Continue with sotalol and metoprolol. 4. Hypertension controlled. 5. Dyslipidemia aware. 6. History of coronary artery disease. She is not complaining of chest pain or shortness of breath at this moment. 7. Generalized weakness and physical deconditioning. I have requested Physical Therapy and Occupational Therapy to evaluate this patient. I will monitor this patient for a little bit longer in the ICU, but probably she can be transferred to a step-down unit today in the afternoon or tomorrow morning. cc: Ritesh Isaac MD
[2019-03-03] MEDS: TYLENOL PO PRN (09:57)
--- NOTE | 2019-03-03 12:04 | NEPHROLOGY PROGRESS NOTE ---
DATE: 03/03/2019 SUBJECTIVE: She is more alert today. She admits to a headache but has no other specific complaints and is able to answer questions. OBJECTIVE: Vital Signs: Blood pressure 125/64, heart rate 56, respirations 15, afebrile. Generally: No acute distress. Skin: Warm and dry. Conjunctivae are pink. Neck: Neck veins are not distended. Heart: Regular. No gallops. Lungs: Equal. No crackles. Abdomen: Soft, nontender. Bowel sounds present. Extremities: No edema, clubbing or cyanosis. IMPRESSION: Hyponatremia. SIADH. Sodium 120 today and she has corrected from 105 to 120 over the past 4 hospital days, which I think is an appropriately managed correction. She is certainly improved neurologically. I would simply use free water restriction at this point and no further tolvaptan or hypertonic saline unless her clinical situation changes. cc: Junior Herrmann MD
[2019-03-03 14:13] LABS: SODIUM 121 mmol/L (136-145)
[2019-03-03 14:23] LABS: AGAP 15; BUN 16 mg/dL (8-22); CALCIUM 9.5 mg/dL (8.8-10.2); CHLORIDE 81 mmol/L (98-107); COSMO 244; CREATININE 0.7 mg/dL (0.5-0.9); ESTIMATED GFR > 60; GLUCOSE 143 mg/dL (70-104); POTASSIUM 3.9 mmol/L (3.5-5.1); TCO2 23 mmol/L (25-35)
[2019-03-03] MEDS: PRAVACHOL PO SCH (20:17)
[2019-03-03] MEDS: ATIVAN PO PRN (20:18)
[2019-03-03] MEDS: ULTRAM PO PRN (21:31)
[2019-03-04] MEDS: PRILOSEC PO SCH (06:02)
--- NOTE | 2019-03-04 08:09 | PROGRESS NOTE ---
DATE: 03/04/2019 SUBJECTIVE: This patient is awake. She is alert. She is following commands. She is oriented x1 today. She was oriented x2 yesterday. She is not oriented to time or place. We will continue fluid restriction. Pending lab work at this moment. OBJECTIVE: Vital Signs: Temperature 97.9 degrees, pulse 67, respiratory rate 18, blood pressure 121/70, oxygen saturation 98 on room air. HEENT: Head normocephalic. No trauma. PERRLA. Neck: Supple. No JVD. No masses. Central trachea. Chest: Clear to auscultation. No wheezing. No rales. Abdomen: Soft, nontender, nondistended. No hepatosplenomegaly. Extremities: No edema. No clubbing. No cyanosis. Neurological Examination: The patient is awake. She is alert. She is oriented to person. She is able to say her date of . She is not oriented to place or time. She is following commands. She is moving all 4 extremities. Laboratory: Pending lab work this morning. ASSESSMENT AND PLAN: 1. Altered mental status on presentation, likely due to severe hyponatremia. This is getting better. We will continue with same management for now, fluid restriction. Pending BMP this morning. 2. 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 Sodium level upon admission was 105 and now is up to 121. Case has been discussed with nephrology department. We will continue with fluid restriction, like I mentioned before. 3. History of atrial fibrillation, rate controlled. Continue with sotalol and metoprolol. 4. Hypertension, controlled. 5. Dyslipidemia. Aware. 6. History of coronary artery disease. She is not complaining of chest pain or shortness of breath at this moment. 7. Generalized weakness and physical deconditioning. Continue physical therapy, occupational therapy. Depending on the lab results today, I will transfer this patient to a stepdown unit. 8. Constipation. I do not have any records for bowel movements during this hospitalization. I will start this patient on MiraLAX and Dulcolax suppositories on a daily basis until she has a return of her bowel function. cc: Ritesh Isaac MD
[2019-03-04 08:28] LABS: ESTIMATED GFR > 60
[2019-03-04 08:35] LABS: AGAP 13; BUN 11 mg/dL (8-22); CALCIUM 9.5 mg/dL (8.8-10.2); CHLORIDE 89 mmol/L (98-107); COSMO 252; CREATININE 0.6 mg/dL (0.5-0.9); GLUCOSE 110 mg/dL (70-104); POTASSIUM 4.4 mmol/L (3.5-5.1); SODIUM 125 mmol/L (136-145); TCO2 23 mmol/L (25-35)
[2019-03-04] MEDS ORDERED: MIRALAX PO SCH (09:00)
[2019-03-04] MEDS: THERA M PLUS PO SCH (09:15)
[2019-03-04] MEDS: DULCOLAX PR SCH (09:15)
[2019-03-04] MEDS: BETAPACE PO SCH ×2 (09:15→21:00)
[2019-03-04] MEDS: TOPROL XL PO SCH (09:15)
[2019-03-04 12:52] LABS: ESTIMATED GFR > 60
[2019-03-04 12:57] LABS: AGAP 10; BUN 13 mg/dL (8-22); CALCIUM 10.1 mg/dL (8.8-10.2); CHLORIDE 86 mmol/L (98-107); COSMO 249; CREATININE 0.6 mg/dL (0.5-0.9); GLUCOSE 120 mg/dL (70-104); POTASSIUM 4.9 mmol/L (3.5-5.1); SODIUM 123 mmol/L (136-145); TCO2 27 mmol/L (25-35)
[2019-03-04 19:10] LABS: ESTIMATED GFR > 60
[2019-03-04 19:12] LABS: AGAP 15; BUN 13 mg/dL (8-22); CALCIUM 9.7 mg/dL (8.8-10.2); CHLORIDE 84 mmol/L (98-107); COSMO 252; CREATININE 0.6 mg/dL (0.5-0.9); GLUCOSE 166 mg/dL (70-104); POTASSIUM 4.5 mmol/L (3.5-5.1); SODIUM 123 mmol/L (136-145); TCO2 24 mmol/L (25-35)
--- NOTE | 2019-03-04 19:16 | NEPHROLOGY PROGRESS NOTE ---
DATE: 03/04/2019 SUBJECTIVE: She is awake, alert, able to answer my questions. She states that she has had problems with her sodium in the past. OBJECTIVE: Vital Signs: Blood pressure 153/75, heart rate 67, respirations 17, afebrile. General: No acute distress. Skin: Warm and dry. Neck veins are not distended. Heart: Regular. No gallops. Lungs: Equal. No crackles. Abdomen: Soft and nontender. Bowel sounds present. Extremities: No edema, clubbing, or cyanosis. IMPRESSION: Syndrome of inappropriate antidiuretic hormone. Sodium 125 this morning. Continue fluid restriction at 1 L per day. No other intervention at this time. Avoid selective serotonin reuptake inhibitors (SSRI) and other medications related to syndrome of inappropriate antidiuretic hormone. We will sign off at this time, but if we can be of further assistance, please do not hesitate to call us back. cc: Junior Herrmann MD
[2019-03-04] MEDS: PRAVACHOL PO SCH (21:00)
[2019-03-05 05:41] LABS: ESTIMATED GFR > 60
[2019-03-05 05:42] LABS: HEMATOCRIT 39.4 % (37.0-47.0); HEMOGLOBIN 13.6 g/dL (12.0-16.0); MCH 30.5 PG (27-31); MCHC 34.5 g/dL (33-37); MCV 88.3 FL (81-99); MPV 10.4 FL (7.4-10.4); RBC 4.46 XMIL (4.2-5.4); RDW 11.7 % (11.5-14.5); WBC 12.85 X1000 (4.8-10.8)
[2019-03-05 05:47] LABS: AGAP 13; BUN 15 mg/dL (8-22); CALCIUM 9.7 mg/dL (8.8-10.2); CHLORIDE 88 mmol/L (98-107); COSMO 253; CREATININE 0.7 mg/dL (0.5-0.9); GLUCOSE 111 mg/dL (70-104); POTASSIUM 4.4 mmol/L (3.5-5.1); SODIUM 125 mmol/L (136-145); TCO2 24 mmol/L (25-35)
[2019-03-05] MEDS: PRILOSEC PO SCH (06:06)
[2019-03-05] MEDS: TOPROL XL PO SCH (08:44)
[2019-03-05] MEDS: SENOKOT PO SCH ×2 (08:44→20:21)
[2019-03-05] MEDS: THERA M PLUS PO SCH (08:44)
[2019-03-05] MEDS: BETAPACE PO SCH ×2 (08:44→20:20)
[2019-03-05] MEDS: DULCOLAX PR SCH (08:45)
[2019-03-05] MEDS: MIRALAX PO SCH ×2 (08:45→20:21)
--- NOTE | 2019-03-05 10:07 | Diag Imaging Result Doc PS360 ---
EXAM: ABDOMEN FLAT/UPRIGHT INDICATION: constipation TECHNIQUE: 2 views COMPARISON: None. FINDINGS: There is somewhat increased stool in the colon suggesting possible moderate constipation. There is no obstructive bowel pattern. There is no evidence of large volume free abdominal gas. There is extensive degenerative arthropathy throughout the spine and scoliosis. IMPRESSION: Suggestion of constipation. Electronically signed by Yaw Meade 03/05/2019 10:05 AM
[2019-03-05 11:38] LABS: URINE SOURCE CATH
[2019-03-05 11:42] LABS: BILIRUBIN URINE NEGATIVE (NEGATIVE); BLOOD URINE NEGATIVE (NEGATIVE); COLOR ORANGE; GLUCOSE URINE NEGATIVE (NEGATIVE); KETONE URINE NEGATIVE (NEGATIVE); LEUKOCYTES URINE LARGE (NEGATIVE); NITRITE URINE NEGATIVE (NEGATIVE); PH URINE 7.5; PROTEIN URINE 300 mg/dL (NEGATIVE); SP GRAVITY URINE 1.016; TURBIDITY URINE TURBID (CLEAR); UROBILINOGEN URINE NORMAL (NORMAL)
[2019-03-05 11:44] LABS: UR EPITHELIAL CELLS <10 /HPF (<10); URINE BACTERIA 2+ /HPF; URINE RBC <10 /HPF (<10); URINE WBC TNTC /HPF (<10)
[2019-03-05 11:54] LABS: URINE CASTS NONE SEEN; URINE CRYSTALS TRIPLE PHOS PRESENT; URINE SMALL ROUND CELLS NONE SEEN; URINE YEAST NONE SEEN
[2019-03-05 13:52] LABS: ESTIMATED GFR > 60
[2019-03-05 13:57] LABS: AGAP 15; BUN 20 mg/dL (8-22); CALCIUM 9.8 mg/dL (8.8-10.2); CHLORIDE 85 mmol/L (98-107); COSMO 252; CREATININE 0.8 mg/dL (0.5-0.9); GLUCOSE 166 mg/dL (70-104); POTASSIUM 4.5 mmol/L (3.5-5.1); SODIUM 122 mmol/L (136-145); TCO2 22 mmol/L (25-35)
--- NOTE | 2019-03-05 15:16 | PROGRESS NOTE ---
DATE: 03/05/2019 SUBJECTIVE: The patient is resting comfortably in bed. She complains of a headache. No acute events noted overnight. OBJECTIVE: Vital Signs: Temperature 98.4 degrees, blood pressure 143/56, heart rate 72, respirations 17, O2 saturation 95% on room air. General: This is a chronically ill-appearing elderly female, lying in bed in no acute distress. Heart: S1, S2 normal. Regular rate and rhythm. Lungs: Equal air entry bilaterally. No wheezing. No rales. No rhonchi. Abdomen: Positive bowel sounds. Soft, nontender, nondistended. Extremities: No edema, no cyanosis. Neurologic: The patient is awake and alert. LABS: Sodium 122, potassium 4.5, chloride 85, CO2 22. BUN 20, creatinine 0.8, glucose 166. White blood cell count 12, hemoglobin 13, hematocrit 39, platelets 288. X-RAYS: Abdominal x-ray shows constipation. ASSESSMENT AND PLAN: 1. Hyponatremia secondary to syndrome of inappropriate antidiuretic hormone. The patient is currently on a fluid restriction. We will continue to monitor the sodium level closely. 2. Urinary tract infection. Will start the patient on Keflex. The urine culture is currently pending. 3. Constipation. We will start the patient on scheduled laxative therapy. 4. Coronary artery disease. Aware. 5. Atrial fibrillation. The patient is rate controlled. Continue on sotalol. 6. Generalized weakness. Continue with physical therapy. 7. Disposition: Will consult with [employer] for discharge planning. cc: Clarita Seals MD
[2019-03-05] MEDS: TYLENOL PO PRN ×2 (15:32→20:20)
[2019-03-05] MEDS: PRAVACHOL PO SCH (20:20)
[2019-03-05] MEDS: KEFLEX PO SCH (20:21)
[2019-03-05] MEDS ORDERED: MIRALAX PO SCH (21:00)
[2019-03-06 05:27] LABS: HEMATOCRIT 35.2 % (37.0-47.0); HEMOGLOBIN 12.1 g/dL (12.0-16.0); MCH 30.5 PG (27-31); MCHC 34.4 g/dL (33-37); MCV 88.7 FL (81-99); MPV 10.2 FL (7.4-10.4); RBC 3.97 XMIL (4.2-5.4); RDW 11.5 % (11.5-14.5); WBC 11.17 X1000 (4.8-10.8)
[2019-03-06 05:53] LABS: AGAP 9; BUN 16 mg/dL (8-22); CALCIUM 8.9 mg/dL (8.8-10.2); CHLORIDE 84 mmol/L (98-107); COSMO 240; CREATININE 0.6 mg/dL (0.5-0.9); ESTIMATED GFR > 60; GLUCOSE 108 mg/dL (70-104); POTASSIUM 4.1 mmol/L (3.5-5.1); TCO2 25 mmol/L (25-35)
[2019-03-06 05:55] LABS: SODIUM 118 mmol/L (136-145)
[2019-03-06] MEDS: PRILOSEC PO SCH (06:21)
[2019-03-06] MEDS: BETAPACE PO SCH ×2 (10:14→20:41)
[2019-03-06] MEDS: KEFLEX PO SCH ×2 (10:14→20:41)
[2019-03-06] MEDS: TOPROL XL PO SCH (10:14)
[2019-03-06] MEDS: THERA M PLUS PO SCH (10:14)
[2019-03-06] MEDS: MIRALAX PO SCH ×2 (10:15→20:42)
[2019-03-06] MEDS: DULCOLAX PR SCH (10:15)
[2019-03-06] MEDS: SENOKOT PO SCH ×2 (10:16→20:42)
--- NOTE | 2019-03-06 16:26 | NEPHROLOGY PROGRESS NOTE ---
DATE: 03/06/2019 SUBJECTIVE: Dr. Seals asked us to see her again because her sodium has been trending downward on fluid restriction only. She is awake and alert and does not have any new complaints today. OBJECTIVE: Vital Signs: Blood pressure 135/62, heart rate 65, afebrile. General: No acute distress. Skin: Warm and dry. Neck: Neck veins are not distended. Heart: Regular. No gallops. Lungs: Equal. No crackles. Extremities: Have no edema, clubbing or cyanosis. IMPRESSION: Hyponatremia secondary to syndrome of inappropriate antidiuretic hormone secretion. Sodium has been in the low 120s since she received a dose of Samsca. I will add saline diuresis and observe her response over the next 24-48 hours. Continue fluid restriction. cc: Junior Herrmann MD
[2019-03-06] MEDS: NS 1,000 ML IV SCH (17:44)
[2019-03-06] MEDS: LASIX IV SCH (17:44)
--- NOTE | 2019-03-06 19:43 | PROGRESS NOTE ---
DATE: 03/06/2019 SUBJECTIVE: The patient is resting comfortably in bed. She ate all of her breakfast and lunch as per the nursing staff. She has no complaints at this time. OBJECTIVE: Vital Signs: Temperature 98.6 degrees, blood pressure 148/73, heart rate 67, respirations 23, O2 saturation 99% on room air, intake 600, output 900. General: This is a chronically ill-appearing elderly female lying in bed in no acute distress. Heart: S1, S2 normal. Regular rate and rhythm. Lungs: Equal air entry bilaterally. No wheezing. No rales. No rhonchi. Abdomen: Positive bowel sounds. Soft, nontender, nondistended. Extremities: No edema, no cyanosis. Neurologic: The patient is alert and oriented to self. She is able to move all 4 extremities. LABS: White blood cell count 11, hemoglobin 12, hematocrit 35, platelets 251,000. Sodium 119, potassium 4.1, chloride 84, CO2 25, BUN 16, creatinine 0.6, glucose 108. ASSESSMENT AND PLAN: 1. Hyponatremia secondary to syndrome of inappropriate antidiuretic hormone secretion. The patient's sodium has dropped over the last 24 hours. Further management as per Dr. Herrmann. 2. Urinary tract infection. The urine culture is growing gram-positive cocci. Continue on antibiotic therapy. 3. Coronary artery disease. Aware. 4. Atrial fibrillation. Continue on sotalol and Toprol-XL. 5. Constipation. Improved. Continue with scheduled laxative therapy. 6. Generalized weakness. Continue with physical therapy. 7. Disposition: The patient will likely need inpatient rehab placement. Assistant Hairstylist is working on placement for the patient. cc: Clarita Seals MD
[2019-03-06] MEDS: PRAVACHOL PO SCH (20:41)
[2019-03-07] MEDS: LASIX IV SCH (04:52)
[2019-03-07] MEDS: NS 1,000 ML IV SCH (04:53)
[2019-03-07 06:19] LABS: ESTIMATED GFR > 60
[2019-03-07 06:24] LABS: AGAP 12; BUN 16 mg/dL (8-22); CALCIUM 8.8 mg/dL (8.8-10.2); CHLORIDE 89 mmol/L (98-107); COSMO 257; CREATININE 0.6 mg/dL (0.5-0.9); GLUCOSE 101 mg/dL (70-104); POTASSIUM 4.3 mmol/L (3.5-5.1); SODIUM 127 mmol/L (136-145); TCO2 26 mmol/L (25-35)
[2019-03-07] MEDS: PRILOSEC PO SCH (06:54)
[2019-03-07] MEDS: KEFLEX PO SCH ×2 (11:10→20:21)
[2019-03-07] MEDS: MIRALAX PO SCH ×2 (11:10→20:21)
[2019-03-07] MEDS: SENOKOT PO SCH ×2 (11:10→20:21)
[2019-03-07] MEDS: BETAPACE PO SCH ×2 (11:10→20:21)
[2019-03-07] MEDS: DULCOLAX PR SCH (11:10)
[2019-03-07] MEDS: TOPROL XL PO SCH (11:11)
[2019-03-07] MEDS: THERA M PLUS PO SCH (11:11)
--- NOTE | 2019-03-07 17:45 | PROGRESS NOTE ---
DATE: 03/07/2019 SUBJECTIVE: The patient is sitting up eating breakfast, no acute events noted overnight. OBJECTIVE: Vital Signs: Temperature 98.6 degrees, blood pressure 134/58, heart rate 67, respirations 16, O2 saturation 97% on room air, intake 1.8 L, output 2.5 L. General: This is a chronically ill-appearing elderly female lying in bed in no acute distress. Heart: S1, S2 normal. Regular rate and rhythm. Lungs: Clear to auscultation bilaterally. No wheezing, no rales, no rhonchi. Abdomen: Positive bowel sounds. Soft, nontender, nondistended. Extremities: No edema, no cyanosis. Neuro: The patient is awake and alert. LAB: Sodium 124, potassium 4.3, chloride 89, CO2 26, BUN 16, creatinine 0.6, glucose 101. ASSESSMENT AND PLAN: 1. 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 The sodium has improved. Will continue on fluid restriction. Nephrology is following. 2. Urinary tract infection secondary to group B Streptococcus. Continue on the current antibiotic regimen. 3. Atrial fibrillation. Continue on sotalol and Toprol-XL. 4. Coronary artery disease. Aware. 5. Constipation. Continue with scheduled laxative therapy. 6. Generalized weakness. Continue with physical therapy. 7. Disposition. The patient will likely need inpatient rehab placement once she is medically stable . cc: Clarita Seals MD MTDD
[2019-03-07] MEDS: PRAVACHOL PO SCH (20:21)
[2019-03-08] MEDS: PRILOSEC PO SCH (06:45)
[2019-03-08 07:05] LABS: AGAP 9; BUN 15 mg/dL (8-22); CALCIUM 8.5 mg/dL (8.8-10.2); CHLORIDE 92 mmol/L (98-107); COSMO 258; CREATININE 0.6 mg/dL (0.5-0.9); ESTIMATED GFR > 60; GLUCOSE 99 mg/dL (70-104); SODIUM 128 mmol/L (136-145); TCO2 27 mmol/L (25-35)
[2019-03-08] MEDS: TYLENOL PO PRN (08:35)
[2019-03-08] MEDS: KEFLEX PO SCH ×2 (08:36→20:32)
[2019-03-08] MEDS: SENOKOT PO SCH ×2 (08:36→20:33)
[2019-03-08] MEDS: BETAPACE PO SCH ×2 (08:36→20:33)
[2019-03-08] MEDS: DULCOLAX PR SCH (08:36)
[2019-03-08] MEDS: THERA M PLUS PO SCH (08:36)
[2019-03-08] MEDS: TOPROL XL PO SCH (08:36)
[2019-03-08] MEDS: MIRALAX PO SCH ×2 (09:13→20:32)
--- NOTE | 2019-03-08 13:43 | PROGRESS NOTE ---
DATE: 03/08/2019 SUBJECTIVE: The patient is resting comfortably in bed. She states that she feels a lot better today. She is more awake and alert and eating well. OBJECTIVE: Vital Signs: Temperature 98 degrees, blood pressure 144/63, heart rate 63, respirations 14, O2 saturation 99% on room air. General: This is a chronically ill-appearing elderly female lying in bed in no acute distress. Heart: S1, S2 normal. Regular rate and rhythm. Lungs: Clear to auscultation bilaterally. Abdomen: Positive bowel sounds. Soft, nontender, nondistended. Extremities: No edema. No cyanosis. Neuro: The patient is alert and oriented x3. LABS: Sodium 128, potassium 4, chloride 92, CO2 27, BUN 15, creatinine 0.6, glucose 99. ASSESSMENT AND PLAN: 1. 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 Slowly improving. Continue with fluid restriction. 2. Urinary tract infection secondary to group B Streptococcus. Continue on antibiotic therapy. 3. Atrial fibrillation. Continue on sotalol and Toprol-XL. 4. Coronary artery disease. Aware. 5. Constipation. Improved. Continue with scheduled laxative therapy. 6. Generalized weakness. Physical therapy has been consulted to ambulate the patient. 7. Disposition. The patient will likely require inpatient rehab upon discharge. We will consult with [employer] for assistance with placement. cc: Clarita Seals MD MTDD
[2019-03-08] MEDS: PRAVACHOL PO SCH (20:33)
[2019-03-09 06:24] LABS: AGAP 10; BUN 13 mg/dL (8-22); CHLORIDE 90 mmol/L (98-107); COSMO 254; CREATININE 0.7 mg/dL (0.5-0.9); ESTIMATED GFR > 60; GLUCOSE 103 mg/dL (70-104); POTASSIUM 4.4 mmol/L (3.5-5.1); SODIUM 126 mmol/L (136-145); TCO2 26 mmol/L (25-35)
[2019-03-09] MEDS: PRILOSEC PO SCH (06:29)
[2019-03-09] MEDS: TYLENOL PO PRN (06:34)
[2019-03-09] MEDS ORDERED: BLISTEX MEDICATED BERRY LIP BALM TOP PRN (06:41)
[2019-03-09] MEDS: THERA M PLUS PO SCH (09:36)
[2019-03-09] MEDS: MIRALAX PO SCH ×2 (09:36→20:52)
[2019-03-09] MEDS: KEFLEX PO SCH (09:36)
[2019-03-09] MEDS: SENOKOT PO SCH ×2 (09:36→20:53)
[2019-03-09] MEDS: BETAPACE PO SCH ×2 (09:36→20:50)
[2019-03-09] MEDS: DULCOLAX PR SCH (09:36)
[2019-03-09] MEDS: TOPROL XL PO SCH (09:36)
--- NOTE | 2019-03-09 10:48 | PROGRESS NOTE ---
DATE: 03/09/2019 SUBJECTIVE: Patient is resting comfortably in bed. She is completely alert and oriented x3. She feels better. She is eating well. Her son is at the bedside. All their questions were answered. Pending rehab center placement. OBJECTIVE: Vital Signs: Temperature 98 degrees, pulse 66, respiratory rate 18, blood pressure 142/74, oxygen saturation 99% on room air. HEENT: Head normocephalic, no trauma, PERRLA. Neck: Supple. No JVD. No masses. Central trachea. Chest: Clear to auscultation. No wheezing. No rales. Abdomen: Soft, nontender, nondistended. No hepatosplenomegaly. Extremities: No edema, no clubbing, no cyanosis. Neurological: She is alert, she is oriented x3. She moves all 4 extremities, but she does have generalized weakness. LABORATORY: Sodium 126, potassium 4.4, chloride 90, bicarbonate 26, BUN 13, creatinine 0.7, glucose 103, calcium 9. ASSESSMENT AND PLAN: 1. Altered mental status on presentation, likely due to severe hyponatremia, this is better. Her sodium level has been in the 120s. Continue with fluid restriction, likely due to SIADH. 2. Acute on chronic hyponatremia as above, likely due to SIADH. She came in with a sodium level of 105, Nephrology Department on board. 3. History of atrial fibrillation, rate controlled. Continue with same medications. 4. Hypertension, controlled. 5. Dyslipidemia, aware. 6. History of coronary artery disease. She is not complaining of chest pain or shortness of breath at this moment. 7. Urinary tract infection with a positive culture that showed Streptococcus agalactiae. I will stop her cephalexin, and I will start this patient on levofloxacin which is sensitive p.o. 8. Generalized weakness and physical deconditioning. Continue physical therapy and occupational therapy. 9. Constipation. Continue with the same management. 10. History of coronary artery disease. Aware. 11. Disposition. 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 She will be discharged to a rehab center. We will wait for her bed at the rehab center. cc: Ritesh Isaac MD
[2019-03-09] MEDS: LEVAQUIN PO SCH (11:35)
[2019-03-09] MEDS: PRAVACHOL PO SCH (20:50)
[2019-03-10] MEDS: PRILOSEC PO SCH (06:04)
[2019-03-10 06:42] LABS: AGAP 11; BUN 12 mg/dL (8-22); CALCIUM 8.7 mg/dL (8.8-10.2); CHLORIDE 87 mmol/L (98-107); COSMO 248; CREATININE 0.6 mg/dL (0.5-0.9); ESTIMATED GFR > 60; GLUCOSE 111 mg/dL (70-104); POTASSIUM 3.6 mmol/L (3.5-5.1); SODIUM 123 mmol/L (136-145); TCO2 25 mmol/L (25-35)
[2019-03-10] MEDS: BETAPACE PO SCH (09:21)
[2019-03-10] MEDS: TOPROL XL PO SCH (09:21)
[2019-03-10] MEDS: THERA M PLUS PO SCH (09:21)
[2019-03-10] MEDS: LEVAQUIN PO SCH (09:21)
[2019-03-10] MEDS: DULCOLAX PR SCH (09:21)
[2019-03-10] MEDS: SENOKOT PO SCH (09:22)
[2019-03-10] MEDS: MIRALAX PO SCH (09:22)
--- NOTE | 2019-03-10 10:05 | DISCHARGE SUMMARY ---
ADMISSION DATE: 02/27/2019 DISCHARGE DATE: DISCHARGE DIAGNOSES: 1. Altered mental status on presentation, likely due to severe hyponatremia. 2. Severe hyponatremia. 3. Syndrome of inappropriate antidiuretic hormone secretion. 4. History of atrial fibrillation. 5. Hypertension. 6. Dyslipidemia. 7. History of coronary artery disease. 8. Urinary tract infection with a positive culture that showed Streptococcus agalactiae. 9. Generalized weakness and physical deconditioning. 10. Constipation. 11. History of coronary artery disease. PROCEDURES PERFORMED: 1. Chest x-ray dated 02/27/2019. Impression: Negative exam. 2. Head CT scan dated 02/27/2019. Impression: Advanced chronic microvascular ischemia, no acute process. 3. Echocardiogram dated 02/28/2019. Normal left ventricular systolic function, ejection fraction of 62%, with borderline concentric LVH, and atypical contractility of the interventricular septum that probably relates to the presence of bundle branch block, pulmonary pressure estimated 29 mmHg. 4. Abdominal x-ray dated 03/05/2019. Impression: Constipation. 5. Urine culture results: Streptococcus agalactiae. HOSPITAL COURSE: This is an 83-year-old, female admitted on 02/27/2019. Presented to the ER at [facility] [place] due to increased lower extremity swelling, headache, dizziness, chest pain at the level of the epigastric area, heartburn, some confusion. No nausea, vomiting, or diarrhea. In the emergency department, she was found to have a low sodium level at 105. ProBNP was elevated at 1596. EKG with normal sinus, with left bundle branch block which is not new. Negative troponins and CK. Chest x-ray and CT of the head did not show any acute abnormalities but given this patient's low sodium, she was placed inpatient for admission and she was transferred to [facility] inpatient ICU. She was evaluated by the nephrology department. She received hypertonic saline and free water restriction. Laboratory showed SIADH. The sodium has been increasing slowly. At some point also, she received Samsca. The patient's mental status improved. She is able to tolerate p.o. but she does have generalized weakness. We do recommend a high salt diet, a low fluid restriction. She can have up to 1 L of fluid in 24 hours. This also has been recommended by the nephrology department. She will be discharged to a rehab center. PHYSICAL EXAMINATION: Vital Signs: Temperature 98.2 degrees, pulse 69, respiratory rate 22, blood pressure 149/73, oxygen saturation 96 on room air. HEENT: Head normocephalic. No trauma. PERRLA. Neck: Supple. No JVD. No masses. Central trachea. Chest: Clear to auscultation. No wheezing. No rales. Abdomen: Soft, nontender, nondistended. No hepatosplenomegaly. Extremities: No edema, no clubbing, no cyanosis. Neurological Examination: She is alert. She is oriented. She moves all 4 extremities but she does have generalized weakness. LABORATORY DATA: Sodium 123, potassium 3.6, chloride 87, bicarbonate 25, BUN 12, creatinine 0.6, glucose 111, calcium 8.7. Again, this patient is allowed to take extra salt with her food. DISCHARGE MEDICATIONS: Acetaminophen 650 mg p.o. q.6 hours as needed for fever, vitamin B complex with vitamin C 1 tablet p.o. daily, vitamin D3 with 2000 units p.o. daily, levofloxacin 500 mg p.o. daily for 4 days, lorazepam 0.5 mg p.o. q.12 hours as needed for anxiety, metoprolol succinate ER 25 mg p.o. daily, Thera-M Plus 1 tablet p.o. daily, omeprazole 20 mg p.o. daily, MiraLAX 17 g p.o. b.i.d., pravastatin 40 mg p.o. at bedtime, Senokot 1 tablet p.o. b.i.d., sotalol 80 mg p.o. b.i.d., tramadol 50 mg p.o. t.i.d. as needed for pain. Time discharging this patient, 30 minutes. cc: Ritesh Isaac MD
[2019-03-10] MEDS: TYLENOL PO PRN (10:39)
[2019-03-10 12:42] VITALS: BP 135/72
== END 2019-03-10 13:52 | disposition swing bed (61) | DRG 643 ==
LOC: P.ED 17:45 → SUATTDRO 22:14 → ICU 22:14 → 1N 03-04 18:24
PROVIDERS: ATTEND Internal Medicine